=== PATIENT | female | born 1940 | race Caucasian/White ===

== ENCOUNTER 2017-09-23 13:50 | Day surgery (SDC) | payer MEDICARE, OTHER ==
[~2017-09-23 13:50] MED LIST: Buffered Lidocaine 0.9% SYRIN* 5 ML/SYR SYRINGE INTRADERM ONE; Dexamethasone IV* 4 MG/ML 1 ML (4 MG) IV SLOW PU ONE; Famotidine IV* 10 MG/ML 2 ML (20 mg) IV ONE; NS 0.9% 1000 ML* 1,000 ML IV SCH; Ondansetron ODT TAB* 4 MG PO ONE
[2017-09-23] MEDS ORDERED: ceFAZolin 2 GM PREMIX (*) 2 GM/50 ML BAG IVPB ONE (13:56)
[2017-09-23] MEDS ORDERED: Buffered Lidocaine 0.9% SYRIN* 5 ML/SYR SYRINGE ONE (13:56)
[2017-09-23] MEDS ORDERED: HYDROcodone/ACETAMIN 5-325 MG* 1 TAB PO PRN (14:54)
[2017-09-23] MEDS ORDERED: Acetaminophen TAB* 325 MG PO PRN (14:54)
[2017-09-23] MEDS ORDERED: PROCHLORPERAZINE INJ 5 MG/ML 2 ML VIAL IV PRN (14:54)
[2017-09-23] MEDS ORDERED: Naloxone* 0.4 MG/ML 1 ML VIAL IV PRN (14:54)
[2017-09-23] MEDS ORDERED: Ondansetron ODT TAB* 4 MG PO PRN (14:54)
[2017-09-23] MEDS ORDERED: fentaNYL* 50 MCG/ML 2 ML VIAL (100 MCG VIAL) ONE (15:21)
[2017-09-23] MEDS ORDERED: Midazolam* 1 MG/ML 2 ML VIAL (2 MG) ONE ×2 (15:21→16:35)
[2017-09-23] MEDS ORDERED: Lidocain 1% EPI 1:100,000 * 30 ML MDV ONE (16:10)
[2017-09-23] MEDS ORDERED: Propofol* 10 MG/ML 20 ML BTL IV PUSH ONE (16:36)
[2017-09-23] MEDS ORDERED: Lidocaine 2% PF * 5 ML VIAL ONE (16:36)
[2017-09-23] MEDS ORDERED: Famotidine IV* 10 MG/ML 2 ML (20 mg) ONE (16:36)
[2017-09-23 18:48] VITALS: BP 119/73
== END 2017-09-23 19:14 | disposition home or self-care (01) ==
LOC: OR 13:50
PROVIDERS: ATTEND Plastic Surgery
DX: C44.311 Basal cell carcinoma of skin of nose (principal)
CPT/HCPCS: 88305; 88331; 88332; J0690; J2250; J2704; J3010